=== PATIENT | male | born 1955 ===

== ENCOUNTER 2017-09-20 09:14 | Emergency (ER) | payer OTHER ==
[2017-09-20 09:30] VITALS: RESP 18; TEMP 98.4
[2017-09-20 10:07] LABS: BASO # 0.04 K/mm3 (0.0-2.0); BASO % 0.4 % (0.0-3.0); EOS # 0.9 (0.0-0.7); EOS % 8.9 % (1.5-5.0); GRAN # 5.35 (1.4-6.5); GRAN % 53.7 % (50.0-68.0); HEMOGLOBIN 15.2 g/dL (14.0-18.0); LYMPH % 29.7 % (22.0-35.0); MEAN CELL VOLUME 90.5 fl (80.0-105.0); MEAN CORPUSCULAR HEMOGLOBIN 31.4 pg (25.0-35.0); MEAN CORPUSCULAR HGB CONC 34.7 g/dl (31.0-37.0); MEAN PLATELET VOLUME 10.7 fl (7.0-11.0); MONO # 0.7 (0.1-0.6); MONO % 7.3 % (1.0-6.0); RBC 4.84 10^6/uL (3.5-6.1); RED CELL DISTRIBUTION WIDTH 13.9 % (11.5-14.5)
--- NOTE | 2017-09-20 10:12 | ED PDOC ---
Arrival/HPI - General Chief Complaint: Back Pain Time Seen by Provider: 09/20/17 09:31 Historian: Patient, Family, [employer] - History of Present Illness Narrative History of Present Illness (Text): 09/20/17 10:10 Patient is a 62 yo male, presents with left sided back pain radiating to groin for past week, worse over past 3-4 days. There is associated difficulty urinating, and patient described that his urine "drips out". Denies fever. Denies testicular swelling. Denies numbness or weakness to arm or leg. Denies chest pain or shortness of breath. Denies hematuria. Pain constant, stabbing. Past Medical History - Past History Past History: No Previous - Infectious Disease Hx of Infectious Diseases: None - Tetanus Immunization Tetanus Immunization: Unknown - Past Medical History Past Medical History: No Previous - Cardiac Hx Pacemaker: No - Pulmonary Hx Respiratory Disorders: No - Neurological Hx Paralysis: No - HEENT Hx HEENT Disorder: No - Renal Hx Renal Disorder: No - Endocrine/Metabolic Hx Endocrine Disorders: No - Hematological/Oncological Hx Blood Transfusions: No - Integumentary Hx Dermatological Disorder: No - Musculoskeletal/Rheumatological Hx Musculoskeletal Disorders: No - Gastrointestinal Hx Gastrointestinal Disorders: No - Genitourinary/Gynecological Hx Genitourinary Disorders: Yes Hx Prostate Problems: Yes - Psychiatric Hx Emotional Abuse: No Hx Physical Abuse: No Hx Substance Use: No - Surgical History Other/Comment: prostate surgery - Anesthesia Hx Anesthesia: Yes Hx Anesthesia Reactions: No Hx Malignant Hyperthermia: No - Suicidal Assessment Feels Threatened In Home Enviroment: No Family/Social History Smoking Status: Never Smoked Hx Alcohol Use: No Hx Substance Use: No Hx Substance Use Treatment: No Allergies/Home Meds Allergies/Adverse Reactions: Allergies No Known Allergies Allergy (Verified 09/20/17 09:32) Review of Systems - Review of Systems Constitutional: absent: Fevers Respiratory: absent: SOB Cardiovascular: absent: Chest Pain Gastrointestinal: Abdominal Pain. absent: Nausea, Vomiting, Appetite Changes, Hematochezia Genitourinary Male: Frequency, Urinary Output Changes. absent: Dysuria, Hematuria Musculoskeletal: Back Pain. absent: Neck Pain Skin: absent: Rash Neurological: absent: Headache, Dizziness, Focal Weakness Endocrine: absent: Polyuria Hemo/Lymphatic: absent: Easy Bleeding Psychiatric: absent: Anxiety Physical Exam Vital Signs Reviewed: Yes Vital Signs Temp Pulse Resp BP Pulse Ox 03/22/18 13:07 68 18 129/78 99 09/20/17 11:18 70 18 131/80 99 09/20/17 09:28 98.4 F 67 18 134/84 97 Temperature: Afebrile Pulse: Regular Appearance: Positive for: Uncomfortable Pain Distress: Mild Mental Status: Positive for: Alert and Oriented X 3 - Systems Exam Head: Present: Atraumatic Pupils: Present: PERRL Mouth: Present: Moist Mucous Membranes Pharnyx: No: ERYTHEMA Neck: Present: Normal Range of Motion Respiratory/Chest: Present: Clear to Auscultation Cardiovascular: Present: Regular Rate and Rhythm Abdomen: Present: Tenderness (mild left inguinal pain on palpation but no hernias palpated, no rebound or guarding), Normal Bowel Sounds. No: Distention , Peritoneal Signs, Rebound, Guarding Rectal: No: Gross Blood Genitourinary Male: Present: Normal External Genitalia. No: Penile Discharge, Testicle Tenderness, Penile Swelling, Hernias Back: Present: CVA Tenderness. No: Midline Tenderness Upper Extremity: No: Cyanosis, Edema Lower Extremity: Present: NORMAL PULSES. No: Edema, CALF TENDERNESS Neurological: Present: Motor Func Grossly Intact, Normal Sensory Function Skin: Present: Warm Psychiatric: Present: Alert, Normal Insight, Normal Concentration Medical Decision Making ED Course and Treatment: Patient's history and physical obtained in presence of shift commander. This also includes anthony Hassan, who translates during re-exam and review of findings. 09/20/17 10:53 CT Abdomen and Pelvis without intravenous contrast Creator : Aubrey Kitchen MD IMPRESSION: No evidence of nephrolithiasis or obstructive uropathy. Mild diverticulosis of the sigmoid colon and descending colon. There is minimal stranding around the descending colon which could represent mild diverticulitis. 09/20/17 12:37 Patient clarifies that pain started in left lower back for several weeks. It is possible there is a component of lumbar strain/sciatica. Pain is palpable in back and worse with ambulation. He denies abdominal pain with this initial pain. He clarifies that pain will radiate to his left groin/testicle. On my examination, HE HAS NO TESTICULAR PAIN OR SWELLING OR EDEMA NOTED. No penile discharge. No inguinal masses or hernias palpated. CT abdomen reviewed with patient. He has MILD llq abdominal pain. No respiratory distress. No fever.. Prostate exam currently unremarkable, although I have stressed LIMITATIONS of prostate evaluation with imaging and Emergency department exam, stressed need for follow-up with his urologist which he expresses understanding of. He denies pain with bowel movements. No diarrhea. He will follow-up with his PMD, Dr Neelima Jones, as well as his urologist. Patient will be discharged with Cipro and flagyl for diverticulitis, instructions have been provided regarding follow-up. 09/20/17 13:55 Testicular US- Creator : Janna Ornelas MD IMPRESSION: 1. Small heterogeneous right testicle minimal flow most likely related to chronic torsion. 2. No evidence of testicular mass or acute epididymo -orchitis. 3. Small left hydrocele. No evidence for varicocele. 09/20/17 14:02 Ultrasound reading reviewed with radiologist, she feels right testicular findings are not acute. PATIENT AGAIN INTERVIEWED WITH NAVIGATION OFFICER and he denies any right sided testicular pain. None is noted on exam. No edema or pain noted on palpation. I have reviewed ultrasound findings in laymen's terms with patient and family. He has appointment with his urologist in the next week. He has been given opportunity to ask questions and expresses understanding of results. - Lab Interpretations Lab Results: 09/20/17 09:50 09/20/17 09:50 Lab Results 09/20/17 09:55: Urine Color Yellow, Urine Appearance Clear, Urine pH 6.5, Ur Specific [place] 1.025, Urine Protein Negative, Urine Glucose (UA) Negative, Urine Ketones Negative, Urine Blood Negative, Urine Nitrate Negative, Urine Bilirubin Negative, Urine Urobilinogen 0.2, Ur Leukocyte Esterase Negative 09/20/17 09:50: Sodium 143, Potassium 4.3, Chloride 107, Carbon Dioxide 26, Anion Gap 14, BUN 16, Creatinine 0.7 L, Est GFR ( Amer) > 60, Est GFR ( Non-Af Amer) > 60, Random Glucose 91, Calcium 9.1, Total Bilirubin 0.5, AST 32, ALT 50, Alkaline Phosphatase 102, Total Protein 7.7, Albumin 4.0, Globulin 3.6, Albumin/Globulin Ratio 1.1 09/20/17 09:50: WBC 10.0 D, RBC 4.84, Hgb 15.2, Hct 43.8, MCV 90.5, MCH 31.4, MCHC 34.7, RDW 13.9, Plt Count 209, MPV 10.7, Gran % 53.7, Lymph % (Auto) 29.7, [place] % (Auto) 7.3 H, Eos % (Auto) 8.9 H, Baso % (Auto) 0.4, Gran # 5.35, Lymph # (Auto) 3.0, [place] # (Auto) 0.7 H, Eos # (Auto) 0.9 H, Baso # (Auto) 0.04 - RAD Interpretation Radiology Orders: 09/20/17 09:46 ABD & PELVIS W/O PO OR IV CONT [CT] Stat 09/20/17 12:47 TESTES DUPLEX COMPLETE [US] Stat - Medication Orders Current Medication Orders: Discontinued Medications Ciprofloxacin (Cipro) 500 mg PO ONCE STA PRN Reason: Protocol Stop: 09/20/17 12:13 Last Admin: 09/20/17 12:22 Dose: 500 mg Metronidazole (Flagyl) 500 mg PO STAT STA PRN Reason: Protocol Stop: 09/20/17 12:16 Last Admin: 09/20/17 12:22 Dose: 500 mg Disposition/Present on Arrival - Present on Arrival Any Indicators Present on Arrival: No History of DVT/PE: No History of Uncontrolled Diabetes: No Urinary Catheter: No History of Decub. Ulcer: No History Surgical Site Infection Following: None - Disposition Have Diagnosis and Disposition been Completed?: Yes Diagnosis: Diverticulitis, Groin pain, Back pain Disposition: HOME/ ROUTINE Disposition Time: 12:42 Patient Plan: Discharge Patient Problems: Current Active Problems Problem Status Onset Back pain Acute Diverticulitis Acute Groin pain Acute Condition: GOOD Discharge Instructions (ExitCare): Diverticulitis (DC), Low Back Pain (DC) Print Language: ZAMBIAN Additional Instructions: For any fevers, any difficulty urinating, any vomiting, any testicle pain or swelling, any bloody urine or stool, any numbness or weakness, any leg pain or swelling, any persistent or worsening of symptoms, get rechecked. Follow-up with your urologist as scheduled, return to ER immediately for any worsening of symptoms. Take antibiotics as directed for possible "diverticulitis". Prescriptions: Ciprofloxacin [Cipro] 500 mg PO BID #20 tab Metronidazole [Flagyl] 500 mg PO TID #30 tablet Referrals: [facility], [Primary Care Provider] - Follow up with primary Gurinder Donovan MD [Non-Staff] - Follow up with primary Marcell Jones MD [Non-Staff] - Follow up with primary Forms: [employer] (Indonesian)
[2017-09-20 10:19] LABS: PH,URINE 6.5 (4.7-8.0); URINE BILIRUBIN NEGATIVE (NEGATIVE); URINE BLOOD NEGATIVE (NEGATIVE); URINE GLUCOSE (UA) NEGATIVE (NEGATIVE); URINE LEUKOCYTE ESTERASE NEGATIVE Leu/uL (NEGATIVE); URINE PROTEIN NEGATIVE mg/dL (<30 mg/dL); URINE UROBILINOGEN 0.2 E.U./dL (<1 E.U./dL)
[2017-09-20 10:22] LABS: URINE APPEARANCE CLEAR (CLEAR); URINE COLOR YELLOW (YELLOW)
[2017-09-20 10:23] LABS: ALB/GLOB RATIO 1.1 (1.1-1.8); ALT/SGPT 50 U/L (7-56); AST/SGOT 32 U/L (17-59); BLOOD UREA NITROGEN 16 mg/dL (7-21); CALCIUM 9.1 mg/dL (8.4-10.5); GFR AFRICAN-AMERICAN > 60; GFR NON-AFRICAN AMERICAN > 60
--- NOTE | 2017-09-20 10:51 | CT ---
PROCEDURE: CT Abdomen and Pelvis without intravenous contrast HISTORY: left flank pain COMPARISON: None. TECHNIQUE: Noncontrast. Contrast Dose: Radiation dose: Total exam DLP = Total exam DLP = 707 mGy-cm. This CT exam was performed using one or more of the following dose reduction techniques: Automated exposure control, adjustment of the mA and/or kV according to patient size, and/or use of iterative reconstruction technique. FINDINGS: LOWER THORAX: Unremarkable. LIVER: Unremarkable. No gross lesion or ductal dilatation. GALLBLADDER AND BILE DUCTS: Unremarkable. PANCREAS: Unremarkable. No gross lesion or ductal dilatation. SPLEEN: Unremarkable. ADRENALS: Unremarkable. No mass. KIDNEYS AND URETERS: Unremarkable. No hydronephrosis. No solid mass. VASCULATURE: Unremarkable. No aortic aneurysm. BOWEL: Unremarkable. No obstruction. No gross mural thickening. Mild diverticulosis of the sigmoid colon and descending colon. There is minimal stranding around the descending colon which could represent mild diverticulitis APPENDIX: Unremarkable. Normal appendix. PERITONEUM: Unremarkable. No free fluid. No free air. LYMPH NODES: Unremarkable. No enlarged lymph nodes. BLADDER: Unremarkable. REPRODUCTIVE: Unremarkable. BONES: No acute fracture. OTHER FINDINGS: None. IMPRESSION: No evidence of nephrolithiasis or obstructive uropathy Mild diverticulosis of the sigmoid colon and descending colon. There is minimal stranding around the descending colon which could represent mild diverticulitis
[2017-09-20 11:19] VITALS: O2SAT 99
--- NOTE | 2017-09-20 13:53 | US ---
HISTORY: Left testicular pain TECHNIQUE: Realtime sonography through the scrotum with color and doppler flow. COMPARISON: None Available. FINDINGS: RIGHT TESTICLE: Measures 3.2 x 2.9 x 1.8 cm. There is heterogeneous echotexture with minimal flow. RIGHT EPIDIDYMIS: Epididymal head measures 1.0 cm. There are few subcentimeter simple cysts. Normal flow. LEFT TESTICLE: Measures 4.3 x 3.9 x 2.3 cm. Normal echotexture and flow. LEFT EPIDIDYMIS: Epididymal head measures 1.5 cm. Grossly unremarkable appearance with normal flow. HYDROCELE: There is a small left hydrocele. No right hydrocele. VARICOCELE: None. OTHER FINDINGS: None. IMPRESSION: 1. Small heterogeneous right testicle minimal flow most likely related to chronic torsion. 2. No evidence of testicular mass or acute epididymo -orchitis. 3. Small left hydrocele. No evidence for varicocele.
[2017-09-20 14:15] VITALS: BP 126/82; PULSE 70
== END 2017-09-20 14:15 | disposition home or self-care (01) ==
LOC: ED 09:14
DX: K57.92 Diverticulitis of intestine, part unspecified, without perforation or abscess without bleeding (principal); R10.32 Left lower quadrant pain; M54.9 Dorsalgia, unspecified